=== PATIENT | female | born 1975 | race Caucasian/White ===

== ENCOUNTER 2019-08-23 16:26 | Emergency (ER) | payer BC, OTHER ==
[2019-08-23 18:58] LABS: HIV (1/2) Antibody/Antigen Non-Reactive (NonReactive); HIV 1/2 INDEX 0.13 S/CO (<1.00); Hep C IgG Ab Non-Reactive (NonReactive); Hep C Index 0.17 S/CO (0-0.79)
[2019-08-23 19:05] LABS: HBSAB Concentration 64.34 mIU/mL; Hep B Surf AB Reactive (NonReactive)
== END 2019-08-23 21:12 | disposition home or self-care (01) ==
LOC: ERS 16:26
DX: Z77.21 Contact with and (suspected) exposure to potentially hazardous body fluids (principal)
CPT/HCPCS: 36415; 86706; 86803; 87389; 99283